=== PATIENT | female | born 1990 | race Caucasian/White ===

== ENCOUNTER 2021-11-29 21:30 | Emergency (ER) | payer BC ==
[~2021-11-29] VITALS: Ht 149.9 cm; Wt 75.7 kg
[~2021-11-29 21:30] MED LIST: CITALOPRAM HBR40 MG PO; GIANVI 3 MG-0.1 EACH PO
== END 2021-11-29 23:38 | disposition home or self-care (01) ==
LOC: ER 21:34 → MERGE 21:34 → ER 23:38
DX: S93.402A Sprain of unspecified ligament of left ankle, initial encounter (principal); S93.602A Unspecified sprain of left foot, initial encounter; X50.1XXA Overexertion from prolonged static or awkward postures, initial encounter; Y93.89 Activity, other specified; F41.9 Anxiety disorder, unspecified; M79.7 Fibromyalgia
CPT/HCPCS: 99282

== ENCOUNTER 2024-12-06 10:38 | Emergency (ER) | payer OTHER ==
[~2024-12-06] VITALS: Ht 149.9 cm; Wt 68.0 kg
[~2024-12-06 10:38] MED LIST changes: +PROPRANOLOL HCL10 MG PO
[2024-12-06 12:02] VITALS: PULSE 77; RESP 18; TEMP 98.4
[2024-12-06 12:40] LABS: BASOPHILS # (AUTO) 0.1 (0.0-0.1); EOSINOPHILS # (AUTO) 0.1 (0.0-0.4); EOSINOPHILS % 1.6 % (0.0-6.0); HEMATOCRIT 36.2 % (34.2-44.1); HEMOGLOBIN 12.2 g/dL (12.0-16.0); LYMPHOCYTES % 16.2 % (18.0-39.1); MEAN CORPUSCULAR HEMOGLOBIN 30.1 pg (28-32); MEAN CORPUSCULAR HGB CONC 33.7 g/dL (31-35); MEAN CORPUSCULAR VOLUME 89.4 fL (81-99); MONOCYTES # (AUTO) 0.6 (0.2-0.8); MONOCYTES % 9.7 % (4.4-11.3); NEUTROPHILS # (AUTO) 4.4 (2.1-6.9); NEUTROPHILS % 71.3 % (38.7-80.0); PLATELET COUNT 259 x10e3/uL (140-360); RED BLOOD COUNT 4.05 x10e6/uL (3.6-5.1); RED CELL DISTRIBUTION WIDTH 12.1 % (11.7-14.4); WHITE BLOOD COUNT 6.19 x10e3/uL (4.8-10.8)
[2024-12-06 12:44] LABS: PREGNANCY TEST, URINE NEGATIVE (NEGATIVE)
[2024-12-06 12:52] LABS: BILIRUBIN,URINE NEGATIVE (NEGATIVE); CLARITY,URINE CLEAR (CLEAR); COLOR,URINE YELLOW (YELLOW); GLUCOSE, URINE NEGATIVE (NEGATIVE); KETONES,URINE NEGATIVE (NEGATIVE); LEUKOCYTE ESTERASE ,URINE TRACE (NEGATIVE); NITRITE,URINE NEGATIVE (NEGATIVE); PH,URINE 6.5 (5 - 7); PROTEIN,URINE DIPSTICK NEGATIVE (NEGATIVE); URINE UROBILINOGEN 0.2 mg/dL (0.2 - 1)
[2024-12-06 13:05] LABS: ALBUMIN 3.8 g/dL (3.5-5.0); ALBUMIN/GLOBULIN RATIO 1.7 (0.8-2.0); ANION GAP 13.5 mmol/L (8-16); BILIRUBIN,TOTAL 0.5 mg/dL (0.2-1.2); CALCIUM 9.1 mg/dL (8.4-10.2); CREATININE, SERUM 0.69 mg/dL (0.57-1.11); POTASSIUM 3.5 mmol/L (3.5-5.1); TOTAL PROTEIN 6.1 g/dL (6.5-8.1)
[2024-12-06 13:06] LABS: BACTERIA,URINE MODERATE /HPF; EPITHELIAL CELLS,URINE MODERATE /LPF; WBC,URINE (MAN) 0-5 /HPF (0-5)
[2024-12-06 14:22] VITALS: BP 116/68; PULSE 70; RESP 18; TEMP 97.6; O2SAT 100
== END 2024-12-06 15:35 | disposition home or self-care (01) ==
LOC: ER 12:46
DX: R30.0 Dysuria (principal); R10.9 Unspecified abdominal pain; M79.7 Fibromyalgia; F41.9 Anxiety disorder, unspecified
CPT/HCPCS: 36415; 80053; 81001; 81025; 85025; 87086; 99284